=== PATIENT | female | born 1945 | race Caucasian/White ===

== ENCOUNTER 2018-11-13 02:49 | Emergency (ER) | payer OTHER ==
[~2018-11-13] VITALS: Ht 147.3 cm; Wt 63.5 kg
[~2018-11-13 02:49] MED LIST: ACET-8386 PO; ATOR10TA PO; CLON0.1T78 PO; MELA3TAB PO; METH500T14 PO
[2018-11-13 02:54] VITALS: BP 169/86
--- NOTE | 2018-11-13 03:00 | NUR ---
PT WHEEL CHAIR ASSISTED TO BED 7 WITH VSS.
--- NOTE | 2018-11-13 03:01 | NUR ---
PT AMBULATED TO BED #7
[2018-11-13] MEDS ORDERED: fentaNYL 0.05 MG/ML VIAL IM ONE (03:10)
[2018-11-13] MEDS ORDERED: LORazepam 2 MG/ML VIAL IM ONE (03:10)
--- NOTE | 2018-11-13 03:27 | NUR ---
C/o lower back/sacral pain after fall. Standing on toilt, fell backward, fell on coccyx. C/o sacral pain 06/12. Denies hitting head. VSS. no deformity or discoloration noted to area. patient denies any other symptoms at this time.
--- NOTE | 2018-11-13 03:40 | NUR ---
patient taken in wheelchair to CT
--- NOTE | 2018-11-13 03:53 | NUR ---
patient back from ct
[2018-11-13] MEDS ORDERED: MORPHINE SULFATE 4 MG/ML SYR IM ONE (04:10)
[2018-11-13] MEDS ORDERED: NACL 0.9% 1,000 ML IV ONE (04:50)
--- NOTE | 2018-11-13 05:02 | NUR ---
KIRBY CATH INSERTED ORDERED, USING STERILE TECHNIQUE. PATIENT TOLERATED WELL. URINE CLEAR YELLOW.
--- NOTE | 2018-11-13 05:10 | NUR ---
REPORT GIVEN TO BHARGAVI COSTA AT [facility] [place]. ETA 30 MIN-1 HOUR FOR TRANSFER SERVICES.
[2018-11-13 05:13] VITALS: BP 166/80
--- NOTE | 2018-11-13 06:25 | NUR ---
no needs stated at this time. still awaiting transport.
--- NOTE | 2018-11-13 07:21 | NUR ---
PT BEING PICKED UP BY [facility] AT THIS TIME FOR TRANSFER.
== END 2018-11-13 07:24 | disposition home or self-care (01) ==
LOC: MED 02:49
DX: S32.011A Stable burst fracture of first lumbar vertebra, initial encounter for closed fracture (principal); M48.061 Spinal stenosis, lumbar region without neurogenic claudication; R39.81 Functional urinary incontinence; I10 Essential (primary) hypertension; Z79.899 Other long term (current) drug therapy; W18.11XA Fall from or off toilet without subsequent striking against object, initial encounter; Y93.89 Activity, other specified; Y92.89 Other specified places as the place of occurrence of the external cause; Y99.8 Other external cause status
CPT/HCPCS: 51702; 72131; 96372; 99285; J2060; J2270; J3010; J7030

== ENCOUNTER 2019-01-05 15:57 | Emergency (ER) | payer OTHER ==
[~2019-01-05] VITALS: Ht 147.3 cm; Wt 59.0 kg
--- NOTE | 2019-01-05 15:58 | NUR ---
no answer in er lobby
[2019-01-05 16:05] VITALS: BP 139/89
--- NOTE | 2019-01-05 16:09 | NUR ---
handed pt urine cup for sample , will wait in er lobby for available room
--- NOTE | 2019-01-05 16:16 | NUR ---
73 y female bib self c/o vaginal bleeding x afternoon. pt states she changed 4 sanitary napkins so far today----denies dysuria. denies pain. states she hasn't has a period in over 30 years. last bm today soft. aa0x4. vss at this time. bed is down, locked, bed rail x 1, ermd to see pt. november 2018 fx coccyx hx--htn rx---clonidine patch
[2019-01-05 17:13] LABS: APPEARANCE,URINE SL CLOUDY (CLEAR); BILIRUBIN,URINE NEGATIVE (NEGATIVE); BLOOD, URINE 3+ (NEGATIVE); COLOR,URINE RED (YELLOW); LEUKOCYTE ESTERASE ,URINE 2+ (NEGATIVE); NITRITE, URINE POSITIVE (NEGATIVE); UGLUCOSE TRACE (NEGATIVE)
--- NOTE | 2019-01-05 17:17 | NUR ---
Female Nuclear Medicine Tech, BRYSON BURK, accompanied female patient for Pelvic Exam WITH DR DONOHUE
[2019-01-05 17:48] LABS: BASOPHILS % (AUTO) 0.6 % (0.0-2.0); EOSINOPHILS # (AUTO) 0.1 K/uL (0-0.4); EOSINOPHILS % (AUTO) 1.4 % (0.0-4.0); HEMATOCRIT 39.6 % (36-48); HEMOGLOBIN 12.9 g/dL (12.0-16.0); LYMPHOCYTES # (AUTO) 1.3 K/uL (2.5-16.5); LYMPHOCYTES % (AUTO) 19.7 % (20.5-51.1); MEAN CORPUSCULAR HEMOGLOBIN 27 pg (27-31); MEAN CORPUSCULAR HGB CONC 33 g/dL (33-37); MEAN CORPUSCULAR VOLUME 82.8 fL (80-94); MONOCYTES # (AUTO) 0.5 K/uL (0.8-1.0); MONOCYTES % (AUTO) 6.9 % (1.7-9.3); NEUTROPHILS # (AUTO) 4.7 K/uL (1.8-7.7); NEUTROPHILS % (AUTO) 71.4 % (42.2-75.2); PLATELET COUNT (AUTO) 301 K/uL (140-450); RED BLOOD CELL COUNT(AUTO) 4.78 MIL/uL (4.20-5.40); RED CELL DISTRIBUTION WIDTH 17.1 % (11.6-13.7); WHITE BLOOD COUNT (AUTO) 6.6 K/uL (4.8-10.8)
[2019-01-05 17:53] LABS: PROTHROMBIN TIME 9.7 secs (10.8-13.4)
--- NOTE | 2019-01-05 17:53 | NUR ---
us at bedside
[2019-01-05 18:08] LABS: RBC,URINE TOO NUMEROUS TO COUN /HPF (0-5)
[2019-01-05 18:09] LABS: WBC,URINE 0-5 /HPF (0-5)
--- NOTE | 2019-01-05 18:53 | NUR ---
vss at this time, aa0x4. pt laying in bed
[2019-01-05 19:04] LABS: ANION GAP 14.3 (8-16); CARBON DIOXIDE 25.9 mmol/L (21-32); CHLORIDE 105 mmol/L (98-107); CREATININE 0.7 mg/dL (0.6-1.3); GLUCOSE 91 mg/dL (74-106); POTASSIUM 4.2 mmol/L (3.5-5.1); SODIUM SERUM 141 mmol/L (136-145); UREA NITROGEN, BLOOD 21 mg/dL (7-18)
--- NOTE | 2019-01-05 19:08 | NUR ---
report given to gerardo gonzalez, transfer of care at this time
--- NOTE | 2019-01-05 19:15 | NUR ---
RECEIVED REPORT FROM BRYSON BURK.
[2019-01-05 19:18] LABS: ALBUMIN 3.9 g/dL (3.4-5.0); ASPARTATE AMINOTRANSFERASE 21 U/L (15-37); TOTAL BILIRUBIN 0.3 mg/dL (0.0-1.0)
[2019-01-05 19:53] VITALS: BP 161/83
--- NOTE | 2019-01-05 19:53 | NUR ---
DISCHARGE PAPERS GIVEN TO PT. BLEEDING CONTROLLED. 0/10 PAIN. A&OX4. VSS. RX OF MACTROBID GIVEN. SIDE EFFECTS EXPLAINED. INSTRUCTED TO F/U WITH PCP AND WHEN TO RETURN TO ER. COPY OF LABS AND IMMIGING GIVEN TO PT. PT VERBALLIZED UNDERSTANDING OF DC INSTRUCTIONS. ALL QUESTIONS ANSWERED.
== END 2019-01-05 19:53 | disposition home or self-care (01) ==
LOC: MED 15:57
DX: N95.0 Postmenopausal bleeding (principal); I10 Essential (primary) hypertension; Z90.49 Acquired absence of other specified parts of digestive tract; Z79.899 Other long term (current) drug therapy
CPT/HCPCS: 36415; 76856; 80053; 81001; 81025; 85025; 85610; 85730; 86886; 86900; 86901; 87086; 93976; 99284; Q0092

== ENCOUNTER 2023-03-04 13:44 | Emergency (ER) | payer MEDICARE, OTHER ==
[~2023-03-04] VITALS: Ht 154.9 cm; Wt 70.3 kg
[~2023-03-04 13:44] MED LIST changes: -ACET-8386 PO; +ACET-8905 PO; -MELA3TAB PO; +MELA3TAB21 PO; +METH-1681 PO; -METH500T14 PO
[2023-03-04 14:00] VITALS: BP 153/76; PULSE 69; RESP 17; TEMP 97.4; O2SAT 98
[2023-03-04 14:38] VITALS: BP 114/80; PULSE 74; RESP 17; O2SAT 98
--- NOTE | 2023-03-04 14:38 | NUR ---
LENNY WRAP APPLIED TO R FOOT X 1
--- NOTE | 2023-03-04 14:39 | NUR ---
Patient discharged with v/s stable. Written and verbal after care instructions given and explained. Patient verbalized understanding. Ambulatory with steady gait. All questions addressed prior to discharge. Advised to follow up with PMD.
== END 2023-03-04 14:06 | disposition home or self-care (01) ==
LOC: MED 13:44
DX: M72.2 Plantar fascial fibromatosis (principal); M19.071 Primary osteoarthritis, right ankle and foot; I10 Essential (primary) hypertension; Z79.899 Other long term (current) drug therapy
CPT/HCPCS: 73630; 99283